=== PATIENT | male | born 1945 | race Caucasian/White ===

== ENCOUNTER → 2023-05-22 12:50 | Outpatient (REF) | payer BC, MEDICARE, SELFPAY | LOC: RAD 12:50 | PROVIDERS: ATTENDING PHYSICIAN Pain Medicine Interventional Pain Medicine | DX: S05.50XA Penetrating wound with foreign body of unspecified eyeball, initial encounter (principal) | CPT/HCPCS: 70030 ==

== ENCOUNTER → 2023-07-06 13:07 | Outpatient (REF) | payer BC, SELFPAY | LOC: DHCBC MAIN 13:07 | PROVIDERS: ATTENDING PHYSICIAN Nurse Practitioner; FAMILY PHYSICIAN Nurse Practitioner | DX: I49.3 Ventricular premature depolarization (principal); I35.0 Nonrheumatic aortic (valve) stenosis | CPT/HCPCS: 93306 ==

== ENCOUNTER → 2023-11-20 11:10 | Outpatient (REF) | payer BC, SELFPAY | LOC: RAD 11:10 | PROVIDERS: ATTENDING PHYSICIAN Nurse Practitioner | DX: R05.1 Acute cough (principal); R06.02 Shortness of breath | CPT/HCPCS: 71046 ==

== ENCOUNTER 2023-11-22 10:51 | Emergency (ER) | payer BC, SELFPAY ==
[2023-11-22 10:54] VITALS: BP 119/77
[2023-11-22 11:11] VITALS: BP 127/70
--- NOTE | 2023-11-22 11:16 | ED.GENMED ---
History of Present Illness
<Lisa Villegas PA-C - Last Filed: 11/22/23 21:57>
General
Chief Complaint: Chest Pain
Source: patient
Exam Limitations: none
Time Seen by Provider: 11/22/23 11:12
Nursing documentation reviewed up to this point in time: agreed with
History of Present Illness
History of Present Illness:
78-year-old male with a past medical history of GERD, hyperlipidemia presenting emergency department today with concerns of chest pain, cough, and shortness of breath for the past week. Patient reports that when this first started, it felt like
when he has had a COVID-19 infection in the past. Patient reports he took multiple home test which were negative. Patient saw his primary care provider on Sunday who gave him an albuterol inhaler for his cough and order chest x-ray. Patient
reports that the outpatient chest x-ray was apparently negative. Of note, patient recently got back from a flight to [place] on the . Patient denies any redness in his legs, any swelling, any calf pain. Patient denies any history of cancer.
Patient follows with Dr. Aundrea Hugo for mild aortic stenosis but otherwise has never had any history of coronary artery disease. He also notes that he has had diarrhea with this as well but he denies any abdominal pain, nausea, vomiting, denies any
fevers or chills, denies any sick contacts. Patient states that his symptoms continue to worsen despite outpatient treatment. His primary care provider sent him to emergency department today for concerns regarding his persistent chest pressure and
respiratory symptoms and requested a CAT scan.
Past History
<Lisa Villegas PA-C - Last Filed: 11/22/23 21:57>
Past History
ED Past Medical History: GERD, Hypercholesterolemia and Other (kidney stone , Arthritis, Sleep apnea,)
ED Past Surgical History: Cholecystectomy
Social History
Tobacco: Former smoker
Alcohol: Daily (Erinn Beer 1)
Drug: None
Personal:
Living: alone
Review of Systems
<Lisa Villegas PA-C - Last Filed: 11/22/23 21:57>
Review of Systems
All Other Systems: ROS reviewed and negative except as documented in HPI and ROS
Phy Exam
<Lisa Villegas PA-C - Last Filed: 11/22/23 21:57>
Physical Exam
Physical Exam:
General: Patient is well appearing and in no acute distress; non-toxic
Skin: Warm and dry, no rashes or lesions
Head: Normocephalic, atraumatic
Eyes: Sclera non-icteric. EOMs intact. PERRLA.
Ears: Bilateral external auditory canals clear, TMs intact bilaterally with no bulging or erythema
Mouth: No intraoral lesions, uvula midline, mild pharyngeal erythema
Neck: No cervical lymphadenopathy
Cardiac: Regular rate and rhythm, I am not able appreciate a murmur
Peripheral Vascular: No lower extremity swelling or edema, no redness
Pulm: Increased respiratory rate, equal breath sounds bilaterally with no wheezes, rales, rhonchi.
Neuro: CN II-XII intact, no focal neurologic deficits. Normal finger-nose, esdt-iv-nqgm testing.
Psychiatric: Appropriate mood and affect.
Scores
<Lisa Villegas PA-C - Last Filed: 11/22/23 21:57>
Heart Score for Chest Pain Patients
STEMI patient?: No
History: Slightly or Non-Suspicious
ECG: Normal
Age: >/= 65 years
Risk Factors: 1 or 2 Risk Factors
Troponin: </= Normal Limit
Heart Score for Chest Pain Patients: 3
Heart Score Risk: 2.5% MACE over next 6 weeks
PE Wells Score
Symptoms of DVT: No
No alternative diagnosis better explains the illness: No
Tachycardia with pulse > 100: No
Immobilization (>=3 days) or surgery within previous 4 weeks: No
Prior history of DVT or pulmonary embolism: No
Presence of hemoptysis: No
Presence of malignancy: No
Pulmonary Embolism Risk Score: 0
Probability of PE: Pt is low risk
<Scooby WellingtonCat Ambrosio DO - Last Filed: 11/22/23 12:02>
PE Wells Score
Pulmonary Embolism Risk Score: 0
Probability of PE: Pt is low risk
Course
<Lisa Villegas PA-C - Last Filed: 11/22/23 21:57>
Orders/Labs/Results
Orders:
Orders
11/22/23 10:59
Electrocardiogram (*1) Urgent
Reason for Study: Chest Pain
EKG- Treatment ONCE
11/22/23 11:40
IV Insert/Care/Rem.- Treatment PRN
11/22/23 11:48
COVID-19 Antigen Stat
Source: Nasal Swab
Complete Blood Count/With Diff Urgent
Comprehensive Metabolic Panel Urgent
Lyme Progressive Urgent
Comment: ADD ON
NT-proBNP Urgent
Comment: ADD ON
Troponin I Urgent
11/22/23 11:54
Add On- LAB Urgent
Tests Added?: pro BNP
11/22/23 12:30
CT Chest Pe Study Urgent
Comment:
Reason For Exam: shortness of breath, chest pain
11/22/23 14:20
0.9% Sodium Chloride 1000 ml [Nss] 1,000 ml IV BOLUS
11/22/23 14:26
Orthostatic VS- Treatment ONCE
11/22/23 15:44
Add On- LAB Urgent
Tests Added?: lyme
Abnormal Lab Results
11/22/23
11:48
WBC 3.8 L 10^3/uL
(4.8-10.8)
Plt Count 119 L 10^3/uL
(130-400)
Neutrophils % 35.9 L %
(42.2-75.2)
BUN 25 H mg/dl
(9-20)
Total Protein 6.2 L g/dl
(6.3-8.2)
11/22/23 11:48
11/22/23 11:48
Vital Signs
Initial and Last Documented VS:
Initial Vital Signs
Temp Pulse Resp BP Pulse Ox
97.9 F 70 24 119/77 100
11/22/23 10:54 11/22/23 10:54 11/22/23 10:54 11/22/23 10:54 11/22/23 10:54
Last Documented Vital Signs
Temp Pulse Resp BP Pulse Ox
97.9 F 73 18 108/73 98
11/22/23 10:54 11/22/23 16:16 11/22/23 12:58 11/22/23 16:16 11/22/23 12:45
<Scooby Ambrosio, DO - Last Filed: 11/22/23 12:02>
Orders/Labs/Results
Orders:
Orders
11/22/23 10:59
Electrocardiogram (*1) Urgent
Reason for Study: Chest Pain
EKG- Treatment ONCE
11/22/23 11:40
IV Insert/Care/Rem.- Treatment PRN
11/22/23 11:48
COVID-19 Antigen Stat
Source: Nasal Swab
Complete Blood Count/With Diff Urgent
Comprehensive Metabolic Panel Urgent
Lyme Progressive Urgent
Comment: ADD ON
NT-proBNP Urgent
Comment: ADD ON
Troponin I Urgent
11/22/23 11:54
Add On- LAB Urgent
Tests Added?: pro BNP
11/22/23 12:30
CT Chest Pe Study Urgent
Comment:
Reason For Exam: shortness of breath, chest pain
11/22/23 14:20
0.9% Sodium Chloride 1000 ml [Nss] 1,000 ml IV BOLUS
11/22/23 14:26
Orthostatic VS- Treatment ONCE
11/22/23 15:44
Add On- LAB Urgent
Tests Added?: lyme
Abnormal Lab Results
11/22/23
11:48
WBC 3.8 L 10^3/uL
(4.8-10.8)
Plt Count 119 L 10^3/uL
(130-400)
Neutrophils % 35.9 L %
(42.2-75.2)
BUN 25 H mg/dl
(9-20)
Total Protein 6.2 L g/dl
(6.3-8.2)
11/22/23 11:48
11/22/23 11:48
Vital Signs
Initial and Last Documented VS:
Initial Vital Signs
Temp Pulse Resp BP Pulse Ox
97.9 F 70 24 119/77 100
11/22/23 10:54 11/22/23 10:54 11/22/23 10:54 11/22/23 10:54 11/22/23 10:54
Last Documented Vital Signs
Temp Pulse Resp BP Pulse Ox
97.9 F 73 18 108/73 98
11/22/23 10:54 11/22/23 16:16 11/22/23 12:58 11/22/23 16:16 11/22/23 12:45
Elijahlt;Lisa Villegas PA-C - Last Filed: 11/22/23 21:57>
MDM/Problems Addressed
Differential Diagnosis Includes:
Differentials include ACS, viral syndrome, PE, pneumothorax, pneumonia
MDM/Problems Addressed:
Chest pain, shortness of breath, cough:
78-year-old male with a past medical history of mild aortic stenosis, hyperlipidemia presenting emergency department today with a week of chest pain, shortness of breath, and coughing. Patient was evaluated twice this week by his primary care
provider and persists with symptoms despite treatment with albuterol inhaler. He had multiple at home COVID test which were negative. Patient's primary care provider sent him in today out of concern for possible pulmonary embolism. Considering
patient's persistent chest pain shortness of breath without improvement, CT PE study was obtained which was negative for PE, pneumonia. Patient was started on doxycycline by his PCP. I suspect his symptoms are likely caused by viral syndrome/acute
bronchospasm. Advised patient to continue albuterol inhaler and follow up with primary for reassessment. No concern for ACS at this time. Patient stable for discharge.
Chronic conditions affecting care:
hyperlipidemia, mild aortic stenosis
Acute Exacerbation and/or Progression of Chronic Illness:
n/a
<Lisa Villegas PA-C - Last Filed: 11/22/23 21:57>
*Pulse Oximetry
Patient hypoxic: no
*EKG
Interpreted by ED Provider?: Yes
EKG Intrepretation Date: 11/22/23
Interpretation: abnormal
Comparison EKG: no changes
Heart Rate: 56
Rate: normal
Rhythm: sinus
Midway: normal axis
Interval: normal QT interval
QRS Pattern: normal QRS
Ischemia: no ischemia
*Critical Care Note
Total Time (30-74mins, 75-104mins- exclusive of procedures): Not Applicable
Data Reviewed
Review of Other/Old Records Reveals: Records (Reviewed ER physician documentation from 08/03/2023 patient was seen for chest pain)
Source: patient
Prescriptions/Medications Considered But Not Given:
n/a
Further Testing Considered But Not Given:
n/a
<Lisa Villegas PA-C - Last Filed: 11/22/23 21:57>
Update Note
Update Note:
11:47-Will obtain blood work. If blood work unremarkable, will obtain CT scan considering patient's persistent symptoms
14:20- Was made aware that patient felt dizzy when he stood up. His blood pressure was on the soft side. Patient was given IV fluids. Will reassess.
15:05- Patient states he feels much improved after some fluids and eating a meal. Patient ambulated with nurse and denies dizziness. Patient states that he is ready to be discharged when his arrived. arrived prior to discharge and was
concerned about possible tic born illness. I added on lyme testing but ultimately stressed that patient will need to follow up with primary regarding full panels and that no indication to stay in hospital.
ED Attending Note
<Lisa Villegas PA-C - Last Filed: 11/22/23 21:57>
-
Portions of this chart may have been created with voice recognition software.� Occasional wrong word or��sound alike� substitutions may have occurred due to the inherent limitations of voice recognition software.
<Scooby Ambrosio DO - Last Filed: 11/22/23 12:02>
ED Attending Note
Patient seen and examined by attending physician: Yes
I performed the substantive portion of visit, reviewed & personally made and approve the management plan that is documented in note by myself or CRISTI.: Yes
ED Attending Note:
I agree with Lisa's note.
78-year-old gentleman presents due to shortness of breath. Patient is an extremely active 78-year-old who has been experiencing shortness of breath with exertion over the past few days. He recently returned from a trip to [place]. He [place]. He began feeling somewhat tired and short of breath towards the end of the trip but thought this might be due to the level of activity. Upon returning home the patient continued to his heavy
workload with catching up on mowing his lawn for several hours a day. He began to feel extremely fatigued and noted shortness of breath which is out of proportion to his activity. He was seen by his PCP who started him on doxycycline and inhalers.
This has not helped. Symptoms progressed prompting his visit today. The patient feels dizzy has a mild headache that she feels some shortness of breath.
General: Awake, Alert, Oriented X3. No acute distress.
Vitals: unremarkable
Head: Atraumatic
Eyes: Pupils equal, EOMI
Throat: Airway intact, no exudates
Neck: Trachea midline
Lungs: Clear and equal b/l
Heart: Regular rate, no murmurs
Abd: Soft, Nontender, No pulsatile mass
Neuro: Nonfocal
Skin: Warm, dry, no rash
Extremities: pulses equal b/l, no edema
Discharge Plan
Departure
Patient Disposition: Home (Routine Discharge)
Date of Disposition: 11/22/23
Time of Disposition: 15:25
Patient with high blood pressure during this ER visit?: No
Condition: Good
Discharge Problem:
Acute viral syndrome
Instructions: Acute bronchitis, BLOOD PRESSURE
Prescriptions:
No Action
omeprazole [Prilosec] 40 MG capsule,delayed release(DR/EC)
40 mg PO DAILY
multivitamin 1 EACH tablet
1 ea PO DAILY
xprrgjxgzux-yuaqvwrwb-uko C-Mn 1 TAB tablet
1 tab PO DAILY
fexofenadine-pseudoephedrine [Rachel-D 24 Hour] 1 EACH tablet extended release 24 hr
1 ea PO DAILY
naproxen sodium [Aleve] 220 MG tablet
220 mg PO Q12 PRN (Reason: for pain- mild) Qty: 30 0RF
Rx Instructions:
get over the counter
phenazopyridine 100 MG tablet
100 mg PO Q8 Qty: 35 0RF
levofloxacin 500 MG tablet
500 mg PO DAILY Qty: 3 0RF
Rx Instructions:
start 10/11
hydrocodone-acetaminophen [Vicodin] 1 EACH tablet
1 ea PO Q8 PRN (Reason: pain) Qty: 25 0RF
Referrals:
Hallie Qureshi CRNP [Family Provider] -
Activity Restrictions/Additional Instructions:
Please continue medication as directed by her primary care provider. Please follow-up with them in the next few days to ensure the resolution of your symptoms and for reassessment.
Please return to the emergency department should you experience any acute worsening of your symptoms, syncopal episodes, palpitations, headaches, confusion, weakness, falls, difficulty speaking, or any other signs or symptoms concerning to you.
Interventions
Interventions:
*Risk Screen - Suicide Last Done: 11/22/23 10:54
*General Assessment Last Done: 11/22/23 10:54
*Neglect/Abuse Screening Last Done: 11/22/23 10:54
ED- Fall Risk Assessment Last Done: 11/22/23 12:59
*ED COVID-19 Vaccine History Last Done: 11/22/23 11:41
*Nursing Disposition Last Done: 11/22/23 16:16
ED- Cardiac Assessment Last Done: 11/22/23 11:30
Discharge Date and Time
Discharge Date/Time: 11/22/23 16:17
Print Language: PASHTO
[2023-11-22 11:41] VITALS: BMI 28.1
[2023-11-22 12:00] VITALS: BP 108/73
[2023-11-22 12:11] LABS: Hemoglobin 15.1 g/dL (13.0-18.0); Mean Corpuscular Hgb 30.6 pg (27.0-31.0); Mean Corpuscular Volume 85.2 fL (80.0-94.0); Mean Platelet Volume 8.9 fL (7.4-10.4); Platelet Count 119 10^3/uL (130-400); Red Blood Cell Count 4.93 10^6/uL (4.70-6.10); Red Cell Dist. Width 12.6 % (11.5-14.5); White Blood Cell Count 3.8 10^3/uL (4.8-10.8)
[2023-11-22 12:28] LABS: COVID-19 Antigen Negative (Negative)
[2023-11-22 12:32] LABS: ALT (SGPT) 35 U/L (0-50); AST (SGOT) 40 U/L (17-59); Albumin 3.6 g/dl (3.5-5.0); Alkaline Phosphatase 103 U/L (38-126); Blood Urea Nitrogen 25 mg/dl (9-20); Carbon Dioxide 26 mmol/L (22-30); Chloride 104 mmol/L (98-107); Estimated Creatinine Clearance 65 ml/min; Glucose 97 mg/dl (70-99); Potassium 4.8 mmol/L (3.5-5.1); Sodium 139 mmol/L (135-145); Total Bilirubin 0.5 mg/dl (0.2-1.3); Total Protein 6.2 g/dl (6.3-8.2); eGFR > 60.00
[2023-11-22 12:33] LABS: NT-proBNP 34.1 pg/ml; Troponin I < 0.012 ng/ml
[2023-11-22 12:57] LABS: % Basophils 1.1 % (0-2); % Eosinophils 2.1 % (0-6); % Immature Granulocytes 0.5 % (0-0.5); % Lymphocytes 51.1 % (20.5-51.1); % Monocytes 9.3 % (1.7-9.3); % Neutrophils 35.9 % (42.2-75.2); Absolute Eosinophils 0.1 10^3/uL (0-0.7); Absolute Lymphocytes 1.9 10^3/uL (1.2-3.4); Absolute Monocytes 0.4 10^3/uL (0.1-0.6); Absolute Neutrophils 1.4 10^3/uL (1.4-6.5); Nucleated Red Blood Cells % 0 % (-)
[2023-11-22] MEDS: NSS 1000 IV (14:32)
[2023-11-22 15:30] VITALS: BP 122/70; BP 124/68; BP 126/72; PULSE 62; PULSE 70; PULSE 79
[2023-11-22 16:16] VITALS: BP 108/73
[2023-11-26 14:45] LABS: Lyme Antibody Screen, EIA Negative (Negative)
== END 2023-11-22 16:17 | disposition home or self-care (01) ==
LOC: EMR 10:51
PROVIDERS: Physician Assistant; EMERGENCY PHYSICIAN Emergency Medicine; FAMILY PHYSICIAN Nurse Practitioner
DX: B34.9 Viral infection, unspecified (principal); R06.02 Shortness of breath; R53.83 Other fatigue; R42 Dizziness and giddiness; R51.9 Headache, unspecified; R07.9 Chest pain, unspecified; R19.7 Diarrhea, unspecified; Z11.52 Encounter for screening for COVID-19; I35.0 Nonrheumatic aortic (valve) stenosis; K21.9 Gastro-esophageal reflux disease without esophagitis; E78.00 Pure hypercholesterolemia, unspecified; G47.30 Sleep apnea, unspecified; M19.90 Unspecified osteoarthritis, unspecified site; Z86.16 Personal history of COVID-19; Z87.442 Personal history of urinary calculi; Z87.891 Personal history of nicotine dependence; Z90.49 Acquired absence of other specified parts of digestive tract; Z88.6 Allergy status to analgesic agent; Z91.048 Other nonmedicinal substance allergy status
CPT/HCPCS: 99285; 96360; 71275; 80053; 83880; 84484; 85025; 86618; 87811; 93005; Q9967

== ENCOUNTER → 2024-01-30 14:17 | Outpatient (REF) | payer BC, SELFPAY | LOC: RAD 14:17 | PROVIDERS: ATTENDING PHYSICIAN Specialist; FAMILY PHYSICIAN Nurse Practitioner | DX: N20.0 Calculus of kidney (principal) | CPT/HCPCS: 74018 ==

== ENCOUNTER → 2024-11-04 13:08 | Outpatient (REF) | payer BC, SELFPAY | LOC: RAD 13:08 | PROVIDERS: ATTENDING PHYSICIAN Specialist; FAMILY PHYSICIAN Nurse Practitioner | DX: S05.50XA Penetrating wound with foreign body of unspecified eyeball, initial encounter (principal) | CPT/HCPCS: 70030 ==